=== PATIENT | female | born 1955 | race American Indian/Alaskan Native ===

== ENCOUNTER 2021-06-26 22:38 | Emergency (ER) | payer MEDICARE ==
--- NOTE | 2021-06-26 23:56 | XRay Report ---
Left shoulder 3 views INDICATION: Left shoulder pain following injury/fall IMPRESSION: No acute fracture or subluxation of the left shoulder identified. Mild osteopenia. Degene rative changes of the AC joint noted. Signer Name: Regis Mixon MD Signed: 06/26/2021 11:51 PM Workstation Name: [id number]
--- NOTE | 2021-06-27 00:07 | XRay Report ---
Left elbow 2 views INDICATION: Left elbow pain following fall IMPRESSION: There is a small elbow effusion. 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 No discrete fracture is identified Signer Name: Regis Mixon MD Signed: 06/27/2021 12:02 AM Workstation Name: [id number]
--- NOTE | 2021-06-27 00:16 | Cat Scan Report ---
CT head without contrast INDICATION : Headache following fall TECHNIQUE: Axial imaging performed from the skull apex through the skull base without the use of con trast. All CT examinations performed at this facility utilize dose modulation, iterative reconstruct ion or weight-based dosing, when appropriate, to reduce radiation dose to as low as reasonably achiev able. Exam is somewhat suboptimal secondary to motion artifact. This causes artifact within the poste rior fossa and the lower skull base. COMPARISON: None FINDINGS: No acute intracranial hemorrhage or parenchymal abnormality appreciated within the limits of the Limited exam.. Ventricles are normal in size and appear symmetric. Soft tissues including the orbits appear normal. No acute osseous abnormality. Sinuses and mastoid air cells are clear. IMPRESSION: No acute abnormality within the limits of the exam. Please see above comments. Signer Name: Regis Mixon MD Signed: 06/27/2021 12:12 AM Workstation Name: [id number]
[2021-06-27] MEDS ORDERED: IBUPROFEN 800 MG TAB PO ONE (00:24)
--- NOTE | 2021-06-27 00:29 | Emergency Department Report ---
HPI - General Chief Complaint: Fall Time Seen by Provider: 06/27/21 00:21 - [facility] HPI: Room 33 The patient is a 66-year-old female present with a chief complaint of pain after fall. The patient states this evening while walking without a walker she stumb led and fell striking her head on a concussion part of the sofa. Patient states she landed on her right arm. Patient complains of pain to the right upper extremity. Patient denies loss of consciousness or headache. Patient denies nausea vomiting ED Past Medical Hx - Past Medical History Previous Medical History?: Yes Hx Hypertension: Yes - Surgical History Past Surgical History?: Yes Additional Surgical History: Spinal tumor, pituitary tumor, hysterectomy - Family History Family history: no significant - Social History Smoking Status: Never Smoker Substance Use Type: Alcohol (Rarely) - Medications Home Medications: Home Medications Medication Instructions Recorded Confirmed Last Taken Type Cyclobenzaprine [Flexeril] 10 mg PO TID PRN #10 tablet 06/27/21 Unknown Rx HYDROcodone/APAP 5-325 [Glide 1 each PO Q6HR PRN #10 tablet 06/27/21 Unknown Rx 5/325] Ibuprofen [Motrin 800 MG tab] 800 mg PO Q8HR PRN #20 tablet 06/27/21 Unknown Rx ED Review of Systems ROS: Stated complaint: FELL AND HIT HEAD Other details as noted in HPI Constitutional: no symptoms reported Eyes: denies: eye pain ENT: denies: throat pain Respiratory: no symptoms reported Endocrine: no symptoms reported Gastrointestinal: denies: abdominal pain Musculoskeletal: arthralgia, myalgia Neurological: denies: headache Physical Exam - Physical Exam Vital Signs: Vital Signs 06/27/21 01:07 Temperature 98.9 F Pulse Rate 72 Respiratory 12 Rate Blood Pressure 167/96 [Right] O2 Sat by Pulse 98 Oximetry Physical Exam: GENERAL: The patient is well-developed well-nourished female sitting in wheelchair not appearing to be in acute distress. [] HEENT: Normocephalic. Swelling to the forehead, no overlying erythema or ecchymosis. Extraocular motions are intact. Patient has moist mucous membranes. NECK: Supple. No axial tenderness to palpation CHEST/LUNGS: Clear to auscultation. There is no respiratory distress noted. HEART/CARDIOVASCULAR: Regular. There is no tachycardia. There is no gallop rub or murmur. ABDOMEN: Abdomen is soft, nontender. Patient has normal bowel sounds. There is no abdominal distention. SKIN: There is no rash. There is no edema. There is no diaphoresis. NEURO: The patient is awake, alert, and oriented. The patient is cooperative. The patient has no focal neurologic deficits. The patient has normal speech. GCS 15. Cranial nerves II through XII grossly intact MUSCULOSKELETAL: There is mild tenderness to palpation of the left elbow and left shoulder. Patient mostly complains of pain when raising her left arm. There is no evidence of acute injury. ED Medical Decision Making - Radiology Data Radiology results: report reviewed (Left elbow x-ray, left shoulder x-ray, CT head), image reviewed (Left elbow x-ray, left shoulder x-ray, CT head) interpreted by me: Left elbow x-ray-no acute fracture, no dislocation Left shoulder x-ray-no acute fracture, no dislocation [facility] [address] [place] [address] Cat Scan Report Signed Patient: KASEY CARRILLO MR#: [id number] 9 : 1955 Acct:[id number] Age/Sex: 66 / F ADM Date: 06/26/21 Loc: ED Attending Dr: Ordering Physician: GALI FUENTES MD Date of Service: 06/26/21 Procedure(s): CT head /brain wo con Accession Number(s): [id number] cc: GALI FUENTES MD CT head without contrast INDICATION : Headache following fall TECHNIQUE: Axial imaging performed from the skull apex through the skull base without the use of contrast. All CT examinations performed at this facility utilize dose modulation, iterative reconstruction or weight-based dosing, when appropriate, to reduce radiation dose to as low as reasonably achievable. Exam is somewhat suboptimal secondary to motion artifact. This causes artifact within the posterior fossa and the lower skull base. COMPARISON: None FINDINGS: No acute intracranial hemorrhage or parenchymal abnormality appreciated within the limits of the Limited exam.. Ventricles are normal in size and appear symmetric. Soft tissues including the orbits appear normal. No acute osseous abnormality. Sinuses and mastoid air cells are clear. IMPRESSION: No acute abnormality within the limits of the exam. Please see above comments. Signer Name: Regis Mixon MD Signed: 06/27/2021 12:12 AM Workstation Name: [id number] Transcribed By: Dictated By: Regis Mixon MD Electronically Authenticated By: Regis Mixon MD Signed Date/Time: 06/27/21 0012 DD/ 0009 TD/TT: Print [facility] [address] [place] [address] XRay Report Signed Patient: KASEY CARRILLO MR#: [id number] 9 : 1955 Acct:[id number] Age/Sex: 66 / F ADM Date: 06/26/21 Loc: ED Attending Dr: Ordering Physician: GALI FUENTES MD Date of Service: 06/26/21 Procedure(s): XR shoulder 2+V LT Accession Number(s): [id number] cc: GALI FUENTES MD Fluoro Time In Minutes: Left shoulder 3 views INDICATION: Left shoulder pain following injury/fall IMPRESSION: No acute fracture or subluxation of the left shoulder identified. Mild osteopenia. Degenerative changes of the AC joint noted. Signer Name: Regis Mixon MD Signed: 06/26/2021 11:51 PM Workstation Name: [id number] Transcribed By: BC Dictated By: Regis Mixon MD Electronically Authenticated By: Regis Mixon MD Signed Date/Time: 06/26/212350 DD/ 50 TD/TT: Print Cancel [facility] [address] [place] [address] XRay Report Signed Patient: KASEY CARRILLO MR#: [id number] 9 : 1955 Acct:[id number] Age/Sex: 66 / F ADM Date: 06/26/21 Loc: ED Attending Dr: Ordering Physician: GALI FUENTES MD Date of Service: 06/26/21 Procedure(s): XR elbow 2V LT Accession Number(s): [id number] cc: GALI FUENTES MD Fluoro Time In Minutes: Left elbow 2 views INDICATION: Left elbow pain following fall IMPRESSION: There is a small elbow effusion. 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 No discrete fracture is identified Signer Name: Regis Mixon MD Signed: 06/27/2021 12:02 AM Workstation Name: [id number] Transcribed By: BC Dictated By: Regis Mixon MD Electronically Authenticated By: Regis Mixon MD Signed Date/Time: 06/27/21 0002 DD/ 0001 TD/TT: Print Cancel - Differential Diagnosis Close head injury, AC separation, shoulder sprain, humerus fracture Critical care attestation.: If time is entered above; I have spent that time in minutes in the direct care of this critically ill patient, excluding procedure time. ED Disposition Clinical Impression: Closed head injury, Left elbow contusion, Left shoulder strain Disposition: HOME / SELF CARE / HOMELESS Is pt being admited?: No Does the pt Need Aspirin: No Condition: Stable Additional Instructions: Return to the emergency department should you develop worsening symptoms, inability to tolerate food or liquids, high fever or any other concerns Prescriptions: Cyclobenzaprine [Flexeril] 10 mg PO TID PRN #10 tablet PRN Reason: Muscle Spasm Ibuprofen [Motrin 800 MG tab] 800 mg PO Q8HR PRN #20 tablet PRN Reason: Pain , Severe (7-10) HYDROcodone/APAP 5-325 [Glide 5/325] 1 each PO Q6HR PRN #10 tablet PRN Reason: Pain Referrals: NILA MATIAS MD [Staff Physician] - 3-5 Days (Dr. Matias is an orthopedic surgeon. Please follow-up with him for further evaluation) Time of Disposition: 00:37
[2021-06-27 01:07] VITALS: BP 167/96
== END 2021-06-27 01:30 | disposition home or self-care (01) ==
LOC: ED 22:38
DX: S46.812A Strain of other muscles, fascia and tendons at shoulder and upper arm level, left arm, initial encounter (principal); S50.02XA Contusion of left elbow, initial encounter; S09.90XA Unspecified injury of head, initial encounter; I10 Essential (primary) hypertension; Z90.710 Acquired absence of both cervix and uterus; Z98.890 Other specified postprocedural states; Z72.89 Other problems related to lifestyle; Z79.899 Other long term (current) drug therapy; W18.39XA Other fall on same level, initial encounter; Y93.89 Activity, other specified; Y92.89 Other specified places as the place of occurrence of the external cause; Y99.8 Other external cause status
CPT/HCPCS: 70450; 99284